=== PATIENT | female | born 1975 | race Hispanic/Latino ===

== ENCOUNTER 2016-07-18 15:13 | Observation (INO) | payer OTHER ==
[2016-07-18 15:39] VITALS: TEMP 97.5; BMI 25.4
[2016-07-18] MEDS ORDERED: Sodium Chloride 0.9% 1,000 ML IV STA (16:59)
[2016-07-18 17:10] LABS: ADD MANUAL DIFF? NO
[2016-07-18 17:18] LABS: URINE BILIRUBIN NEGATIVE (NEGATIVE); URINE BLOOD NEGATIVE (NEGATIVE); URINE GLUCOSE (UA) NEGATIVE (NEGATIVE); URINE KETONE NEGATIVE (NEGATIVE); URINE LEUKOCYTE ESTERASE NEGATIVE Leu/uL (NEGATIVE); URINE PROTEIN NEGATIVE mg/dL (<30 mg/dL); URINE UROBILINOGEN 0.2 E.U./dL (<1 E.U./dL)
[2016-07-18 17:25] LABS: ALKALINE PHOSPHATASE 61 U/L (38-133); ALT/SGPT 34 U/L (7-56); AST/SGOT 24 U/L (15-39); BILIRUBIN,TOTAL 0.5 mg/dL (0.2-1.3); BLOOD UREA NITROGEN 11 mg/dL (7-21); CALCIUM 9.3 mg/dL (8.4-10.5); CARBON DIOXIDE 30 mmol/L (21-33); CHLORIDE 98 mmol/L (98-107); GFR AFRICAN-AMERICAN > 60; GLUCOSE,RANDOM 66 mg/dL (70-110); LIPASE 51 U/L (23-300); POTASSIUM 3.6 mmol/L (3.6-5.0); SODIUM 139 mmol/L (132-148); TOTAL PROTEIN 8.3 g/dL (5.8-8.3)
[2016-07-18 17:27] LABS: INR 0.99 (0.93-1.08); PARTIAL THROMBOPLASTIN TIME 28.2 Seconds (23.7-30.8)
[2016-07-18 17:29] LABS: URINE APPEARANCE CLEAR (CLEAR); URINE COLOR YELLOW (YELLOW)
[2016-07-18 17:30] LABS: BASO # 0.02 K/mm3 (0.0-2.0); BASO % 0.3 % (0.0-3.0); EOS # 0.1 (0.0-0.7); EOS % 1.3 % (1.5-5.0); GRAN # 4.14 (1.4-6.5); GRAN % 52.8 % (50.0-68.0); LYMPH # 2.9 (1.2-3.4); LYMPH % 37.5 % (22.0-35.0); MEAN CELL VOLUME 86.5 fL (80.0-105.0); MEAN CORPUSCULAR HEMOGLOBIN 29.8 pg (25.0-35.0); MEAN CORPUSCULAR HGB CONC 34.4 g/dl (31.0-37.0); MEAN PLATELET VOLUME 10.5 fl (7.0-11.0); MONO # 0.6 (0.1-0.6); MONO % 8.1 % (1.0-6.0); PLATELET COUNT 251 10^3/uL (120.0-450.0); RED CELL DISTRIBUTION WIDTH 12.6 % (11.5-14.5); WHITE BLOOD COUNT 7.8 10^3/ul (4.5-11.0)
[2016-07-18] MEDS ORDERED: Iohexol 350 MG/100 ML VIAL ONE (17:34)
--- NOTE | 2016-07-18 18:40 | ED PDOC ---
Arrival/HPI - General Chief Complaint: Abdominal Pain Time Seen by Provider: 07/18/16 16:19 Historian: Patient - History of Present Illness Narrative History of Present Illness (Text): 07/18/16 18:38 Patient complains of diffuse severe constant contraction-like abdominal pain that waxes and wanes associated with multiple episodes of watery nonbloody diarrhea, which started yesterday morning. Patient reports eating Russian food for dinner 2 days ago and then [employer] pizza the following day. Otherwise: (-) vomiting, (-) nausea, (-) fever, (-) urinary symptoms, (-) recent travel, (-) recent antibiotic intake, (-) sick contacts, (-) melena, (-) hematochezia. Has no history of prior abdominal surgery or any prior abdominal conditions. KONG Ramirez Past Medical History - Provider Review Nursing Documentation Reviewed: Yes - Infectious Disease Hx of Infectious Diseases: None - Tetanus Immunization Tetanus Immunization: Unknown - Past Medical History Past Medical History: No Previous - Cardiac Hx Cardiac Disorders: No - Pulmonary Hx Respiratory Disorders: No - Neurological Hx Neurological Disorder: No - HEENT Hx HEENT Disorder: No - Renal Hx Renal Disorder: No - Endocrine/Metabolic Hx Endocrine Disorders: No - Hematological/Oncological Hx Blood Disorders: No - Integumentary Hx Dermatological Disorder: No - Musculoskeletal/Rheumatological Hx Musculoskeletal Disorders: No - Gastrointestinal Hx Gastrointestinal Disorders: No - Genitourinary/Gynecological Hx Genitourinary Disorders: No - Psychiatric Hx Psychophysiologic Disorder: No Hx Substance Use: No - Past Surgical History Past Surgical History: No Previous - Anesthesia Hx Anesthesia: No Family/Social History - Physician Review Nursing Documentation Reviewed: Yes Family/Social History: No Known Family HX Smoking Status: Current Some Days Smoker Hx Alcohol Use: No Hx Substance Use: No Allergies/Home Meds Allergies/Adverse Reactions: Allergies No Known Allergies Allergy (Verified 07/18/16 15:39) Review of Systems - Review of Systems Constitutional: Normal. absent: Fatigue, Weight Change, Fevers Respiratory: Normal. absent: SOB, Cough, Sputum Cardiovascular: Normal. absent: Chest Pain, Palpitations, Edema Gastrointestinal: Normal, Abdominal Pain, Diarrhea. absent: Constipation, Appetite Changes Genitourinary Female: Normal. absent: Dysuria, Frequency, Hematuria Musculoskeletal: Normal. absent: Arthralgias, Back Pain, Neck Pain Skin: Normal. absent: Rash, Pruritis, Skin Lesions Neurological: Normal. absent: Headache, Dizziness, Focal Weakness Physical Exam - Physical Exam Narrative Physical Exam (Text): 07/18/16 18:41 GENERAL APPEARANCE: Patient is awake, alert, oriented x 3, in moderate painful distress. SKIN: Warm, dry; (-) cyanosis. EYES: (-) conjunctival pallor, (-) scleral icterus. ENMT: Mucous membranes dry. NECK: (-) tenderness, (-) stiffness, (-) lymphadenopathy. CHEST AND RESPIRATORY: (-) rales, (-) rhonchi, (-) wheezes; breath sounds equal bilaterally. HEART AND CARDIOVASCULAR: (-) irregularity; (-) murmur, (-) gallop. ABDOMEN AND GI: (-) distention. Bowel sounds active; (+) moderate lower abdominal tenderness, (-) guarding, (-) rebound, (-) palpable masses, (-) CVA tenderness. EXTREMITIES: (-) deformity, (-) edema, (+) distal pulses. NEURO AND PSYCH: Mental status as above; (-) focal findings. Vital Signs Temp Pulse Resp BP Pulse Ox 07/18/16 19:00 69 18 117/69 100 07/18/16 17:09 75 18 115/68 100 07/18/16 15:39 97.5 F L 89 18 113/71 100 07/18/16 15:38 97.5 F L 89 18 113/71 100 Medical Decision Making ED Course and Treatment: 07/18/16 18:42 40 yo F complaining of diffuse contraction like abdominal pain associated with multiple episodes of watery diarrhea. Plan: -- Labs -- IV fluids -- Urinalysis -- Pepcid / Toradol / Bentyl -- Patient placed in ED observation -- CT AP - Lab Interpretations Lab Results: 07/18/16 16:35 07/18/16 16:35 Lab Results 07/18/16 16:35: Sodium 139, Potassium 3.6, Chloride 98, Carbon Dioxide 30, Anion Gap 15, BUN 11, Creatinine 0.7, Est GFR ( Amer) > 60, Est GFR (Non- Af Amer) > 60, Random Glucose 66 L, Calcium 9.3, Total Bilirubin 0.5, AST 24, ALT 34, Alkaline Phosphatase 61, Total Protein 8.3, Albumin 4.2, Globulin 4.1, Albumin/Globulin Ratio 1.0 L, Lipase 51 07/18/16 16:35: Urine Color Yellow, Urine Appearance Clear, Urine pH 7.0, Ur Specific [place] 1.010, Urine Protein Negative, Urine Glucose (UA) Negative, Urine Ketones Negative, Urine Blood Negative, Urine Nitrate Negative, Urine Bilirubin Negative, Urine Urobilinogen 0.2, Ur Leukocyte Esterase Negative 07/18/16 16:35: PT 10.7, INR 0.99, APTT 28.2 07/18/16 16:35: WBC 7.8, RBC 4.97, Hgb 14.8, Hct 43.0, MCV 86.5, MCH 29.8, MCHC 34.4, RDW 12.6, Plt Count 251, MPV 10.5, Gran % 52.8, Lymph % (Auto) 37.5 H, [place] % (Auto) 8.1 H, Eos % (Auto) 1.3 L, Baso % (Auto) 0.3, Gran # 4.14, Lymph # 2.9, [place] # 0.6, Eos # 0.1, Baso # 0.02 I have reviewed the lab results: Yes Interpretation: All labs normal - RAD Interpretation Narrative RAD Interpretations (Text): 07/18/16 20:13 CT A/P w/ IV contrast: FINDINGS: Lower thorax: No acute findings. ABDOMEN: Liver: Unremarkable. No mass. Gallbladder and bile ducts: Gallbladder contracted. No calcified stones. No ductal dilation. Pancreas: Unremarkable. No mass. No ductal dilation. Spleen: Unremarkable. No splenomegaly. Adrenals: Unremarkable. No mass. Kidneys and ureters: Unremarkable. No solid mass. No hydronephrosis. Stomach and bowel: Unremarkable. No obstruction. No mucosal thickening. Appendix: No findings to suggest acute appendicitis. PELVIS: Bladder: Bladder not well distended. Reproductive: Unremarkable as visualized. ABDOMEN and PELVIS: Intraperitoneal space: Trace free fluid can be normal for age. No free air. Bones/joints: No acute fracture. No dislocation. Soft tissues: There is some beam hardening artifact from umbilical piercing. Vasculature: Unremarkable. No abdominal aortic aneurysm. Lymph nodes: Unremarkable. No enlarged lymph nodes. Other findings: Motion noted. IMPRESSION: No evidence to suggest colitis. No acute abnormality seen. Dictated and Authenticated by: Ginny Dominguez MD 07/18/2016 7:22 PM Eastern Time ([place] & [place]) - Medication Orders Current Medication Orders: Discontinued Medications Dicyclomine HCl (Bentyl) 20 mg PO ONCE ONE Stop: 07/18/16 17:01 Last Admin: 07/18/16 17:13 Dose: 20 mg Famotidine (Pepcid) 20 mg IVP STAT STA Stop: 07/18/16 17:00 Last Admin: 07/18/16 17:13 Dose: 20 mg Sodium Chloride (Sodium Chloride 0.9%) 1,000 mls @ 1,000 mls/hr IV .Q1H STA Stop: 07/18/16 17:58 Last Admin: 07/18/16 17:13 Dose: 1,000 mls/hr Iohexol (Omnipaque 350 100 Ml) Confirm Administered Dose 350 mg .ROUTE .STK-MED ONE Stop: 07/18/16 17:35 Ketorolac Tromethamine (Toradol) 30 mg IVP STAT STA Stop: 07/18/16 17:00 Last Admin: 07/18/16 17:12 Dose: 30 mg Re-Assess: [facility] Pain Assessment Document 07/18/16 18:12 SF (Rec: 07/18/16 19:27 [id number]) Pain Reassessment Is this a pain reassessment? Yes Sleep Is patient sleeping during reassessment? No Presence of Pain Presence of Pain Yes Pain Scale Used Pain Scale Used Numeric Description Pain not relieved and LIP/MD was Yes notified Morphine Sulfate (Morphine) 4 mg IVP STAT STA Stop: 07/18/16 19:10 Last Admin: 07/18/16 19:27 Dose: 4 mg Ondansetron HCl (Zofran Inj) 4 mg IVP STAT STA Stop: 07/18/16 19:10 Last Admin: 07/18/16 19:27 Dose: 4 mg ED OBSERVATION Date of observation admission: 07/18/16 Time of observation admission: 17:00 - Observation admission statement Patient is being placed in observation because:: To obtain labs and CT to rule out colitis and diverticulitis. - Goals of Observation Goals of observation are:: To monitor patient's symptoms and observe patient's response to treatment. - Progress Note Progress Note: 05/14/17 18:30 Labs reviewed, white count is normal, CMP is within normal limits. CT still pending at this time. 07/18/16 19:[address] without any incident, awaiting results at this time. On reevaluation, patient states that her abdominal pain came back, reports of crampy lower abdominal pain at this time, with no nausea. On exam, patient is sitting up in mild painful distress. Abdomen remained soft with lower abdominal tenderness, no guarding, no rebound. Given a dose of morphine and Zofran IV. 07/18/16 20:14 CT of the abdomen and pelvis was negative and no acute findings. On reevaluation , patient reports significant improvement of her abdominal pain, denies any nausea or vomiting or diarrhea at this time. On exam, patient is laying in bed comfortably in no distress. Abdomen soft with no tenderness, no guarding, and no rebound. Based on history, exam and diagnostic results plan will be for patient follow-up. Prescription provided. Patient states she fully agrees with and understands discharge instructions. States that she agrees with the plan and disposition. Verbalized and repeated discharge instructions and plan. I have given the patient opportunity to ask any additional questions. Follow up with primary care physician in 1-2 days without fail. Advised to take medication as prescribed. Return to the emergency room at any time for any new or worsening symptoms. - PA / TAG PRESS OPERATOR / Resident Statement /DO has reviewed & agrees with the documentation as recorded. Disposition/Present on Arrival - Present on Arrival Any Indicators Present on Arrival: No History of DVT/PE: No History of Uncontrolled Diabetes: No Urinary Catheter: No History of Decub. Ulcer: No History Surgical Site Infection Following: None - Disposition Have Diagnosis and Disposition been Completed?: Yes Diagnosis: Abdominal pain, Diarrhea, Dehydration, Gastroenteritis Disposition: HOME/ ROUTINE Disposition Time: 17:00 (Patient placed in ED observation) Patient Plan: Discharge Condition: STABLE
[2016-07-18] MEDS ORDERED: Morphine 4 mg/ml ISec IVP STA (19:09)
[2016-07-18 20:50] VITALS: BP 116/70; PULSE 79; RESP 16; O2SAT 99
--- NOTE | 2016-07-19 08:59 | CT ---
PROCEDURE: CT Abdomen and Pelvis with contrast HISTORY: abd pain, diarrhea, r/o colitis COMPARISON: None available TECHNIQUE: Contrast dose: 100 cc Omnipaque 350 Radiation dose: Total exam DLP = 501.55 mGy-cm. This CT exam was performed using one or more of the following dose reduction techniques: Automated exposure control, adjustment of the mA and/or kV according to patient size, and/or use of iterative reconstruction technique. FINDINGS: LOWER THORAX: Unremarkable. LIVER: Unremarkable. GALLBLADDER AND BILE DUCTS: Contracted gallbladder appears otherwise unremarkable. PANCREAS: Unremarkable. SPLEEN: Unremarkable. ADRENALS: Unremarkable. KIDNEYS AND URETERS: The kidneys enhance symmetrically. No hydronephrosis or obstructing calculus identified. VASCULATURE: No aortic aneurysm. BOWEL: Stomach is incompletely distended. Lack of oral contrast limits evaluation for bowel pathology. Bowel loops appear within normal limits of caliber without evidence of obstruction. APPENDIX: No secondary signs of acute appendicitis. PERITONEUM: Trace pelvic fluid, may be physiologic. No definite free air. LYMPH NODES: No bulky adenopathy evident. BLADDER: Under distended urinary bladder appears otherwise unremarkable. REPRODUCTIVE: The uterus is present. BONES: No acute osseous abnormality is detected. OTHER FINDINGS: None. IMPRESSION: No acute findings. Preliminary impression was provided by virtual radiologic.
== END 2016-07-18 20:51 | disposition home or self-care (01) ==
LOC: ED 15:13 → EROBSV 17:00
PROVIDERS: ADMIT Emergency Medicine; ATTEND Emergency Medicine
DX: K52.9 Noninfective gastroenteritis and colitis, unspecified (principal); E86.0 Dehydration; R10.9 Unspecified abdominal pain; R19.7 Diarrhea, unspecified
CPT/HCPCS: 74177; 80053; 81003; 83690; 85025; 85610; 85730; 87086; 96361; 96374; 96375; 99285; G0378; J1885; J2270; J2405; J7040; Q9967